=== PATIENT | female | born 1965 | race Caucasian/White ===

== ENCOUNTER 2017-03-29 23:54 | Emergency (ER) | payer OTHER ==
[~2017-03-29] VITALS: Ht 160 cm; Wt 93.0 kg
[~2017-03-29 23:54] MED LIST: METF500T4 PO
[2017-03-29] MEDS ORDERED: SITA100 PO (23:57)
[2017-03-29] MEDS ORDERED: METF500T4 PO (23:57)
[2017-03-30 00:02] LABS: GLUCOSE,POINT OF CARE 194 MG/DL (70-110)
[2017-03-30] MEDS ORDERED: IPRATROPIUM BROMIDE 0.5 MG/2.5 ML NEB SOLUTION NEB ONE (00:45)
[2017-03-30] MEDS ORDERED: ACETAMINOPHEN 500 MG TABLET PO ONE (00:45)
[2017-03-30] MEDS ORDERED: MethylPREDNISolone SOD SUCC 125 MG/2 ML VIAL IM ONE (00:45)
[2017-03-30] MEDS ORDERED: ALBUTEROL SULFATE 2.5 MG/0.5 ML NEB SOLUTION NEB ONE (00:45)
[2017-03-30 00:52] LABS: BASOPHILS # (AUTO) 0.03 K/uL (0.00-0.20); BASOPHILS % (AUTO) 0.5 % (0.0-2.0); EOSINOPHILS # (AUTO) 0.47 K/uL (0.00-0.70); HEMOGLOBIN 13.6 g/dL (12.0-16.0); LYMPHOCYTES # (AUTO) 1.6 K/uL (1.0-4.8); LYMPHOCYTES % (AUTO) 22.7 % (22.0-44.0); MEAN CORPUSCULAR HEMOGLOBIN 28.4 pg (26.0-34.0); MEAN CORPUSCULAR VOLUME 84 fL (80-100); MONOCYTES # (AUTO) 0.5 K/uL (0.1-1.0); MONOCYTES % (AUTO) 6.9 % (2.0-9.0); NEUTROPHILS # (AUTO) 4.6 K/uL (1.8-7.7); NEUTROPHILS % (AUTO) 63.5 % (40.0-70.0); PLATELET COUNT (AUTO) 272 K/uL (150-450); RED BLOOD CELL COUNT(AUTO) 4.79 MIL/uL (4.00-5.20)
[2017-03-30 01:05] LABS: ANION GAP 6 mmol/L (8-16); CARBON DIOXIDE 32 mmol/L (22-29); CHLORIDE 103 mmol/L (98-107); CREATININE 0.82 mg/dL (0.60-1.30); GLOMERULAR FILTR. RATE CALC > 60 mL/min (>60); GLUCOSE,RANDOM 185 mg/dL (70-110); POTASSIUM 4.1 mmol/L (3.5-5.1); SODIUM SERUM 141 mmol/L (136-145); UREA NITROGEN, BLOOD 13 mg/dL (7-18)
[2017-03-30 01:11] LABS: ALANINE AMINOTRANSFERASE 43 U/L (12-78); ALBUMIN 3.4 g/dL (3.4-5.0); ALKALINE PHOSPHATASE 80 U/L (46-116); ASPARTATE AMINOTRANSFERASE 19 U/L (15-37); BILIRUBIN,TOTAL 0.5 mg/dL (0.1-1.0); TOTAL PROTEIN, SERUM 6.7 g/dL (6.4-8.2)
[2017-03-30 01:15] VITALS: BP 152/89
[2017-03-30 01:22] LABS: INFLUENZA TYPE A NEGATIVE FOR TYPE A (NEGATIVE); INFLUENZA TYPE B NEGATIVE FOR TYPE B (NEGATIVE)
[2017-03-30] MEDS ORDERED: ALBUTEROL SULFATE HFA 90 MCG/PUFF 8 GM INHALER IH ONE (01:30)
== END 2017-03-30 02:08 | disposition home or self-care (01) ==
LOC: EMS 23:55
DX: J06.9 Acute upper respiratory infection, unspecified (principal); J40 Bronchitis, not specified as acute or chronic; E11.65 Type 2 diabetes mellitus with hyperglycemia; J02.9 Acute pharyngitis, unspecified
CPT/HCPCS: 36415; 71010; 80053; 82962; 84484; 85025; 87804; 94640 ×2; 96372; 99285; J2930; J7613; J3535

== ENCOUNTER → 2017-06-23 | Outpatient (CLI) | payer OTHER ==
[~2017-06-23] VITALS: Ht 160 cm; Wt 99.0 kg
[~2017-06-23] MED LIST changes: +LISI5TAB PO; -METF500T4 PO; +METF500T6 PO; +SITA100 PO
[2017-06-23 09:36] VITALS: BP 126/75
[2017-06-23 11:02] LABS: GLUCOMETER DEV NAME(LOC) SHC; GLUCOSE,POINT OF CARE 249 MG/DL (70-110)
== END | disposition home or self-care (01) ==
LOC: SRCNTR 08:58
PROVIDERS: ATTEND Hospitalist
DX: Z09 Encounter for follow-up examination after completed treatment for conditions other than malignant neoplasm (principal); E11.9 Type 2 diabetes mellitus without complications; I10 Essential (primary) hypertension
CPT/HCPCS: 82271; 82962; G0463

== ENCOUNTER → 2017-06-23 | Outpatient (CLI) | payer OTHER ==
[~2017-06-23] MED LIST changes: +METF500T4 PO; -METF500T6 PO
[2017-06-23 11:29] LABS: BASOPHILS % (AUTO) 0.9 % (0.0-2.0); EOSINOPHILS % (AUTO) 7.8 % (1.0-6.0); HEMATOCRIT 41.3 % (36-46); HEMOGLOBIN 14.4 g/dL (12.0-16.0); LYMPHOCYTES # (AUTO) 1.6 K/uL (1.0-4.8); LYMPHOCYTES % (AUTO) 20.8 % (22.0-44.0); MEAN CORPUSCULAR HEMOGLOBIN 28.2 pg (26.0-34.0); MEAN CORPUSCULAR HGB CONC 34.8 G/dL (31.0-37.0); MEAN CORPUSCULAR VOLUME 81 fL (80-100); MONOCYTES # (AUTO) 0.5 K/uL (0.1-1.0); MONOCYTES % (AUTO) 6.7 % (2.0-9.0); NEUTROPHILS % (AUTO) 63.8 % (40.0-70.0); PLATELET COUNT (AUTO) 221 K/uL (150-450); RED CELL DISTRIBUTION WIDTH 13.3 % (11.5-14.5)
[2017-06-23 11:33] LABS: BILIRUBIN,URINE NEGATIVE (NEGATIVE); GLUCOSE, URINE (UA) 250 mg/dL (NEGATIVE); KETONES,URINE NEGATIVE (NEGATIVE); LEUKOCYTE ESTERASE ,URINE NEGATIVE (NEGATIVE); NITRATE,URINE NEGATIVE (NEGATIVE); OCCULT BLOOD,URINE NEGATIVE (NEGATIVE); PH,URINE 5.5 (5.0-8.0); PROTEIN,URINE NEGATIVE (NEGATIVE)
[2017-06-23 11:40] LABS: APPEARANCE,URINE HAZY (CLEAR)
[2017-06-23 11:45] LABS: BACTERIA,URINE Moderate /HPF (None Seen); RBC,URINE 0-2 /HPF (0-2); SQUAMOUS EPITHELIAL CELL,UR Moderate /LPF (None Seen)
[2017-06-23 11:47] LABS: HEMOGLOBIN A1C 8.1 % (4.5-6.2)
[2017-06-23 11:54] LABS: ANION GAP 4 mmol/L (8-16); CARBON DIOXIDE 31 mmol/L (22-29); CHLORIDE 101 mmol/L (98-107); CREATININE 0.48 mg/dL (0.60-1.30); GLUCOSE,RANDOM 224 mg/dL (70-110); POTASSIUM 4.1 mmol/L (3.5-5.1); SODIUM SERUM 136 mmol/L (136-145); UREA NITROGEN, BLOOD 14 mg/dL (7-18)
[2017-06-23 11:55] LABS: ALANINE AMINOTRANSFERASE 71 U/L (12-78); ALBUMIN 3.7 g/dL (3.4-5.0); ALKALINE PHOSPHATASE 88 U/L (46-116); ASPARTATE AMINOTRANSFERASE 26 U/L (15-37); BILIRUBIN,TOTAL 1.2 mg/dL (0.1-1.0); CALCIUM, TOTAL 8.7 mg/dL (8.8-10.5); CHOL/HDL RATIO 4.6 (3.9-5.7); CHOLESTEROL 173 mg/dL (131-200); FREE T4 (FREE THYROXINE) 0.91 ng/dL (0.76-1.46); GLOMERULAR FILTR. RATE CALC > 60 mL/min (>60); HDL CHOLESTEROL 38 mg/dL (40-60); LDL CHOL (CALC.) 115 mg/dL (0-130); THYROID STIMULATING HORMONE 4.95 uIU/mL (0.36-3.74); TOTAL PROTEIN, SERUM 6.6 g/dL (6.4-8.2); TRIGLYCERIDES 102 mg/dL (15-150)
== END | disposition home or self-care (01) ==
LOC: LABPV 10:50
PROVIDERS: ATTEND Hospitalist
DX: E11.9 Type 2 diabetes mellitus without complications (principal)
CPT/HCPCS: 83036; 84439; 84443; 87086

== ENCOUNTER 2019-11-21 11:33 | Emergency (ER) | payer MEDICARE, OTHER ==
[~2019-11-21] VITALS: Ht 170.2 cm; Wt 100.0 kg
[~2019-11-21 11:33] MED LIST changes: -LISI5TAB PO; +METF-960 PO; -METF500T4 PO
[2019-11-21] MEDS ORDERED: LISI-660 PO (11:42)
[2019-11-21] MEDS ORDERED: GLYB5 PO (11:42)
[2019-11-21] MEDS ORDERED: ALBUTEROL SULFATE HFA 90 MCG/PUFF 8 GM INHALER IH ONE (14:00)
[2019-11-21] MEDS ORDERED: OXYMETAZOLINE HCL 0.05% 15 ML NASAL SPRAY NASAL ONE (14:00)
[2019-11-21 14:53] VITALS: BP 112/66
== END 2019-11-21 14:56 | disposition home or self-care (01) ==
LOC: EMS 11:37
DX: J40 Bronchitis, not specified as acute or chronic (principal); Z20.828 Contact with and (suspected) exposure to other viral communicable diseases
CPT/HCPCS: 87426; 94640; J3535; 71045-TC

== ENCOUNTER → 2019-12-27 | Outpatient (CLI) | payer MEDICARE, OTHER ==
[~2019-12-27] MED LIST changes: +GLYB5 PO; +LISI-660 PO; -SITA100 PO
== END | disposition home or self-care (01) ==
LOC: SRCNTR 11:22
PROVIDERS: ATTEND Hospitalist
DX: E11.9 Type 2 diabetes mellitus without complications (principal); I10 Essential (primary) hypertension; Z98.51 Tubal ligation status; Z98.890 Other specified postprocedural states
CPT/HCPCS: Q3014

== ENCOUNTER 2020-01-15 15:47 | Emergency (ER) | payer OTHER ==
[~2020-01-15] VITALS: Ht 162.6 cm; Wt 97.7 kg
[2020-01-15 17:28] LABS: COVID AG,FIA SOURCE NASAL SWAB
[2020-01-15 17:56] LABS: BASOPHILS % (AUTO) 0.8 % (0.0-2.0); EOSINOPHILS % (AUTO) 4.8 % (1.0-6.0); HEMATOCRIT 46.2 % (36-46); HEMOGLOBIN 15.7 g/dL (12.0-16.0); LYMPHOCYTES # (AUTO) 1.6 K/uL (1.0-4.8); MEAN CORPUSCULAR HEMOGLOBIN 27.9 pg (26.0-34.0); MEAN CORPUSCULAR VOLUME 82 fL (80-100); MONOCYTES # (AUTO) 0.7 K/uL (0.1-1.0); MONOCYTES % (AUTO) 6.7 % (2.0-9.0); NEUTROPHILS # (AUTO) 7.1 K/uL (1.8-7.7); NEUTROPHILS % (AUTO) 71.7 % (40.0-70.0); PLATELET COUNT (AUTO) 292 K/uL (150-450); RED BLOOD CELL COUNT(AUTO) 5.62 MIL/uL (4.00-5.20)
[2020-01-15 18:25] VITALS: BP 183/76
[2020-01-15 18:34] LABS: RAPID GROUP A STREP NEGATIVE (NEGATIVE)
== END 2020-01-15 18:30 | disposition home or self-care (01) ==
LOC: EMS 15:48
DX: J20.9 Acute bronchitis, unspecified (principal); I10 Essential (primary) hypertension; E11.9 Type 2 diabetes mellitus without complications; Z79.84 Long term (current) use of oral hypoglycemic drugs; Z79.899 Other long term (current) drug therapy; Z20.828 Contact with and (suspected) exposure to other viral communicable diseases
CPT/HCPCS: 36415; 71045; 85025; 87426; 87430; 99284; U0003

== ENCOUNTER → 2020-02-27 | Outpatient (CLI) | payer OTHER ==
[~2020-02-27] VITALS: Ht 152.4 cm; Wt 94.0 kg
[2020-02-27 15:58] VITALS: BP 151/74
== END | disposition home or self-care (01) ==
LOC: SRCNTR 15:49
PROVIDERS: ATTEND Hospitalist
DX: M25.411 Effusion, right shoulder (principal)
CPT/HCPCS: G0463

== ENCOUNTER 2020-09-01 14:49 | Emergency (ER) | payer OTHER ==
[~2020-09-01] VITALS: Ht 160 cm; Wt 97.3 kg
[~2020-09-01 14:49] MED LIST changes: -GLYB5 PO; +GLYB5TAB10 PO; -LISI-660 PO; +LISI-892 PO
[2020-09-01 17:07] VITALS: BP 154/70
== END 2020-09-01 17:13 | disposition home or self-care (01) ==
LOC: EMS 14:59
DX: J06.9 Acute upper respiratory infection, unspecified (principal); Z98.51 Tubal ligation status; E11.9 Type 2 diabetes mellitus without complications
CPT/HCPCS: 71046; 82948; 82962; 99283

== ENCOUNTER 2020-09-28 14:38 | Emergency (ER) | payer OTHER ==
[~2020-09-28] VITALS: Ht 165.1 cm; Wt 97.0 kg
[2020-09-28] MEDS ORDERED: ACETAMINOPHEN 325 MG TABLET PO ONE (15:30)
[2020-09-28] MEDS ORDERED: PERTUSS(ACELL),DIPH,TET VAC/PF 0.5 ML SYRINGE IM. ONE (16:30)
[2020-09-28 17:37] VITALS: BP 177/112
== END 2020-09-28 17:53 | disposition home or self-care (01) ==
LOC: EMS 14:47
DX: S10.91XA Abrasion of unspecified part of neck, initial encounter (principal); S09.90XA Unspecified injury of head, initial encounter; R51.9 Headache, unspecified; M54.2 Cervicalgia; Y04.8XXA Assault by other bodily force, initial encounter; Y93.89 Activity, other specified; Y92.89 Other specified places as the place of occurrence of the external cause; Y99.0 Civilian activity done for income or pay
CPT/HCPCS: 70450; 72125; 90471; 90715; 99285

== ENCOUNTER → 2020-10-02 | Outpatient (CLI) | payer BC, OTHER ==
[~2020-10-02] VITALS: Ht 160 cm; Wt 95.0 kg
[2020-10-02 11:38] VITALS: BP 144/73
== END | disposition home or self-care (01) ==
LOC: SRCNTR 11:19
PROVIDERS: ATTEND Hospitalist
DX: Z00.00 Encounter for general adult medical examination without abnormal findings (principal)
CPT/HCPCS: G0463

== ENCOUNTER → 2020-10-03 | Outpatient (CLI) | payer BC ==
[2020-10-03 09:05] LABS: BASOPHILS % (AUTO) 0.9 % (0.0-2.0); EOSINOPHILS % (AUTO) 3.7 % (1.0-6.0); HEMATOCRIT 41.9 % (36-46); HEMOGLOBIN 14.2 g/dL (12.0-16.0); LYMPHOCYTES # (AUTO) 1.4 K/uL (1.0-4.8); MEAN CORPUSCULAR HEMOGLOBIN 27.8 pg (26.0-34.0); MEAN CORPUSCULAR VOLUME 82 fL (80-100); MONOCYTES # (AUTO) 0.6 K/uL (0.1-1.0); MONOCYTES % (AUTO) 6.4 % (2.0-9.0); NEUTROPHILS # (AUTO) 6.6 K/uL (1.8-7.7); PLATELET COUNT (AUTO) 236 K/uL (150-450); RED BLOOD CELL COUNT(AUTO) 5.12 MIL/uL (4.00-5.20); RED CELL DISTRIBUTION WIDTH 13.4 % (11.5-14.5)
[2020-10-03 09:09] LABS: HEMOGLOBIN A1C 10.8 % (3.8-5.6)
[2020-10-03 09:18] LABS: ALBUMIN 3.6 g/dL (3.4-5.0); ALKALINE PHOSPHATASE 116 U/L (46-116); ANION GAP 6 mmol/L (8-16); ASPARTATE AMINOTRANSFERASE 23 U/L (15-37); BILIRUBIN,TOTAL 0.8 mg/dL (0.1-1.0); CALCIUM, TOTAL 8.5 mg/dL (8.8-10.5); CARBON DIOXIDE 29 mmol/L (22-29); CHLORIDE 101 mmol/L (98-107); CHOLESTEROL 157 mg/dL (131-200); CREATININE 0.63 mg/dL (0.60-1.30); GLOMERULAR FILTR. RATE CALC > 60 mL/min (>60); GLUCOSE,RANDOM 267 mg/dL (70-110); SODIUM SERUM 136 mmol/L (136-145); THYROID STIMULATING HORMONE 3.24 uIU/mL (0.36-3.74); TOTAL PROTEIN, SERUM 6.6 g/dL (6.4-8.2); TRIGLYCERIDES 154 mg/dL (15-150)
[2020-10-03 09:59] LABS: UREA NITROGEN, BLOOD 16 mg/dL (7-18)
[2020-10-03 10:00] LABS: ALANINE AMINOTRANSFERASE 54 U/L (12-78)
[2020-10-03 10:19] LABS: CHOL/HDL RATIO 4.2 (3.9-5.7); HDL CHOLESTEROL 37 mg/dL (40-60); LDL CHOL (CALC.) 89 mg/dL (0-130)
== END | disposition home or self-care (01) ==
LOC: LABMN 08:36
PROVIDERS: ATTEND Hospitalist
DX: F43.10 Post-traumatic stress disorder, unspecified (principal)
CPT/HCPCS: 80053; 80061; 82306; 83036; 84443; 85025

== ENCOUNTER 2020-11-08 10:56 | Emergency (ER) | payer OTHER ==
[~2020-11-08] VITALS: Ht 160 cm; Wt 95.0 kg
[2020-11-08 10:58] VITALS: BP 140/81
[2020-11-08] MEDS ORDERED: ONDANSETRON HCL 4 MG/2 ML VIAL IVP ONE (11:30)
[2020-11-08] MEDS ORDERED: KETOROLAC TROMETHAMINE 30 MG/ML VIAL IVP ONE (11:30)
[2020-11-08] MEDS ORDERED: SODIUM CHLORIDE 0.9% 1,000 ML IV ONE (11:30)
[2020-11-08 11:51] LABS: BASOPHILS % (AUTO) 0.9 % (0.0-2.0); EOSINOPHILS % (AUTO) 1.7 % (1.0-6.0); HEMATOCRIT 44.1 % (36-46); LYMPHOCYTES # (AUTO) 1.1 K/uL (1.0-4.8); MEAN CORPUSCULAR HGB CONC 34.1 G/dL (31.0-37.0); MEAN CORPUSCULAR VOLUME 82 fL (80-100); MONOCYTES # (AUTO) 0.6 K/uL (0.1-1.0); MONOCYTES % (AUTO) 7.3 % (2.0-9.0); NEUTROPHILS # (AUTO) 5.7 K/uL (1.8-7.7); NEUTROPHILS % (AUTO) 75.1 % (40.0-70.0); PLATELET COUNT (AUTO) 225 K/uL (150-450); RED BLOOD CELL COUNT(AUTO) 5.38 MIL/uL (4.00-5.20); RED CELL DISTRIBUTION WIDTH 13.5 % (11.5-14.5)
[2020-11-08 11:58] LABS: ANION GAP 8 mmol/L (8-16); CARBON DIOXIDE 26 mmol/L (22-29); CHLORIDE 99 mmol/L (98-107); CREATININE 0.68 mg/dL (0.60-1.30); GLOMERULAR FILTR. RATE CALC > 60 mL/min (>60); GLUCOSE,RANDOM 318 mg/dL (70-110); POTASSIUM 3.8 mmol/L (3.5-5.1); SODIUM SERUM 133 mmol/L (136-145); UREA NITROGEN, BLOOD 16 mg/dL (7-18)
[2020-11-08 12:03] LABS: ACETONE,BLOOD NEGATIVE (NEGATIVE)
[2020-11-08 12:05] LABS: ALANINE AMINOTRANSFERASE 44 U/L (12-78); ALBUMIN 3.6 g/dL (3.4-5.0); ALKALINE PHOSPHATASE 112 U/L (46-116); ASPARTATE AMINOTRANSFERASE 13 U/L (15-37); BILIRUBIN,TOTAL 1.5 mg/dL (0.1-1.0); CREATINE KINASE, TOTAL ONLY 50 U/L (26-192); PHOSPHORUS 3.5 mg/dL (2.5-4.9); TOTAL PROTEIN, SERUM 6.8 g/dL (6.4-8.2)
[2020-11-08 12:09] LABS: B-TYPE NATRIURETIC PEPTIDE 9 pg/mL (0-100)
[2020-11-08 13:39] LABS: GLUCOMETER DEV NAME(LOC) ERT.5; GLUCOSE,POINT OF CARE 225 MG/DL (70-110)
== END 2020-11-08 14:04 | disposition home or self-care (01) ==
LOC: EMS 10:59
DX: E11.65 Type 2 diabetes mellitus with hyperglycemia (principal); I10 Essential (primary) hypertension; Z79.899 Other long term (current) drug therapy; Z79.84 Long term (current) use of oral hypoglycemic drugs
CPT/HCPCS: 80053; 82009; 82550; 82962; 83735; 83880; 84100; 84484; 85025; 93005; 96361; 96374; 96375; 99284; J1885; J2405; J7030

== ENCOUNTER → 2021-01-15 | Emergency (ER) | payer OTHER ==
[~2021-01-15] VITALS: Ht 160 cm; Wt 95.0 kg
[~2021-01-15] MED LIST changes: +KETOROLAC TROMETHAMINE 30 MG/ML VIAL IVP ONE; +SODIUM CHLORIDE 0.9% 1,000 ML IV ONE
[2021-01-15 22:15] LABS: BASOPHILS % (AUTO) 1.4 % (0.0-2.0); EOSINOPHILS % (AUTO) 4.5 % (1.0-6.0); HEMATOCRIT 45.1 % (36-46); HEMOGLOBIN 15.4 g/dL (12.0-16.0); LYMPHOCYTES # (AUTO) 2.1 K/uL (1.0-4.8); LYMPHOCYTES % (AUTO) 20.7 % (22.0-44.0); MEAN CORPUSCULAR HGB CONC 34.2 G/dL (31.0-37.0); MEAN CORPUSCULAR VOLUME 82 fL (80-100); MONOCYTES # (AUTO) 0.6 K/uL (0.1-1.0); NEUTROPHILS # (AUTO) 6.7 K/uL (1.8-7.7); NEUTROPHILS % (AUTO) 67.4 % (40.0-70.0); PLATELET COUNT (AUTO) 254 K/uL (150-450); RED CELL DISTRIBUTION WIDTH 12.9 % (11.5-14.5)
[2021-01-15 22:23] LABS: CALCIUM, TOTAL 9.2 mg/dL (8.8-10.5); CREATININE 1.11 mg/dL (0.60-1.30); POTASSIUM 4.1 mmol/L (3.5-5.1)
[2021-01-15 22:26] LABS: APPEARANCE,URINE CLEAR (CLEAR); BILIRUBIN,URINE NEGATIVE (NEGATIVE); GLUCOSE, URINE (UA) >=1000 mg/dL (NEGATIVE); KETONES,URINE TRACE mg/dL (NEGATIVE); LEUKOCYTE ESTERASE ,URINE NEGATIVE (NEGATIVE); NITRATE,URINE NEGATIVE (NEGATIVE); OCCULT BLOOD,URINE NEGATIVE (NEGATIVE); PROTEIN,URINE NEGATIVE (NEGATIVE); UROBILINOGEN,URINE 0.2 mg/dL (<=1.0)
[2021-01-15 22:35] LABS: BILIRUBIN,TOTAL 0.8 mg/dL (0.1-1.0); TOTAL PROTEIN, SERUM 7.1 g/dL (6.4-8.2)
[2021-01-15 22:42] LABS: BACTERIA,URINE Few /HPF (None Seen); RBC,URINE 0-2 /HPF (0-2); WBC,URINE 0-2 /HPF (0-5)
[2021-01-15 22:55] LABS: ALBUMIN 3.9 g/dL (3.4-5.0)
[2021-01-15 23:45] VITALS: BP 144/79
== END | disposition home or self-care (01) ==
LOC: EMS 21:11
DX: R10.9 Unspecified abdominal pain (principal); E11.9 Type 2 diabetes mellitus without complications; Z79.84 Long term (current) use of oral hypoglycemic drugs; Z79.899 Other long term (current) drug therapy; Z98.890 Other specified postprocedural states
CPT/HCPCS: 36415; 74176; 80053; 81001; 83690; 84702; 85025; 96361; 96374; 99284; J1885; J7030

== ENCOUNTER 2021-01-17 13:35 | Emergency (ER) | payer OTHER ==
[~2021-01-17] VITALS: Ht 160 cm; Wt 93.2 kg
[~2021-01-17 13:35] MED LIST changes: -KETOROLAC TROMETHAMINE 30 MG/ML VIAL IVP ONE; -SODIUM CHLORIDE 0.9% 1,000 ML IV ONE
[2021-01-17] MEDS ORDERED: IOHEXOL 240 MG/ML 50 ML VIAL PO ONE (15:45)
[2021-01-17] MEDS ORDERED: SODIUM CHLORIDE 0.9% 1,000 ML IV ONE (15:45)
[2021-01-17] MEDS ORDERED: KETOROLAC TROMETHAMINE 30 MG/ML VIAL IVP ONE (15:45)
[2021-01-17 15:53] LABS: BASOPHILS % (AUTO) 0.6 % (0.0-2.0); EOSINOPHILS % (AUTO) 2.5 % (1.0-6.0); HEMATOCRIT 45.3 % (36-46); HEMOGLOBIN 15.6 g/dL (12.0-16.0); LYMPHOCYTES # (AUTO) 1.6 K/uL (1.0-4.8); LYMPHOCYTES % (AUTO) 19.3 % (22.0-44.0); MEAN CORPUSCULAR HGB CONC 34.5 G/dL (31.0-37.0); MEAN CORPUSCULAR VOLUME 81 fL (80-100); MONOCYTES # (AUTO) 0.5 K/uL (0.1-1.0); MONOCYTES % (AUTO) 6.2 % (2.0-9.0); NEUTROPHILS # (AUTO) 5.9 K/uL (1.8-7.7); NEUTROPHILS % (AUTO) 71.4 % (40.0-70.0); PLATELET COUNT (AUTO) 267 K/uL (150-450); RED BLOOD CELL COUNT(AUTO) 5.59 MIL/uL (4.00-5.20); RED CELL DISTRIBUTION WIDTH 13.2 % (11.5-14.5)
[2021-01-17 16:02] LABS: ANION GAP 4 mmol/L (8-16); CALCIUM, TOTAL 9.5 mg/dL (8.8-10.5); CARBON DIOXIDE 33 mmol/L (22-29); CHLORIDE 101 mmol/L (98-107); CREATININE 0.69 mg/dL (0.60-1.30); GLOMERULAR FILTR. RATE CALC > 60 mL/min (>60); GLUCOSE,RANDOM 244 mg/dL (70-110); POTASSIUM 4.5 mmol/L (3.5-5.1); SODIUM SERUM 138 mmol/L (136-145); UREA NITROGEN, BLOOD 11 mg/dL (7-18)
[2021-01-17 16:07] LABS: ALANINE AMINOTRANSFERASE 54 U/L (12-78); ALBUMIN 3.9 g/dL (3.4-5.0); ALKALINE PHOSPHATASE 86 U/L (46-116); ASPARTATE AMINOTRANSFERASE 27 U/L (15-37); BILIRUBIN,TOTAL 1.4 mg/dL (0.1-1.0); LIPASE 142 U/L (73-393); TOTAL PROTEIN, SERUM 7.1 g/dL (6.4-8.2)
[2021-01-17] MEDS ORDERED: BARIUM SULFATE 0.1% SUSPENSION 450 ML BOTTLE PO ONE (16:30)
[2021-01-17 16:36] LABS: GLUCOMETER DEV NAME(LOC) ERT.5; GLUCOSE,POINT OF CARE 253 MG/DL (70-110)
[2021-01-17] MEDS ORDERED: SODIUM CHLORIDE 0.9% 100 ML ONE (17:28)
[2021-01-17] MEDS ORDERED: IOHEXOL 350 MG/ML 100 ML VIAL ONE (17:29)
[2021-01-17 17:31] VITALS: BP 148/77
== END 2021-01-17 19:20 | disposition home or self-care (01) ==
LOC: EMS 13:35
DX: R10.31 Right lower quadrant pain (principal); E11.9 Type 2 diabetes mellitus without complications; Z79.84 Long term (current) use of oral hypoglycemic drugs
CPT/HCPCS: 36415; 74177; 80053; 82948; 82962; 83690; 85025; 96361; 96374; 99285; J1885; J7030; J7050; Q9967; Q9966

== ENCOUNTER 2021-01-20 13:52 | Emergency (ER) | payer OTHER ==
[~2021-01-20] VITALS: Ht 172.7 cm; Wt 81.8 kg
[~2021-01-20 13:52] MED LIST changes: +METF-1211 PO; -METF-960 PO
[2021-01-20] MEDS ORDERED: SODIUM CHLORIDE 0.9% 1,000 ML IV ONE (14:15)
[2021-01-20] MEDS ORDERED: MORPHINE SULFATE 4 MG/ML SYRINGE IVP ONE (14:15)
[2021-01-20] MEDS ORDERED: ONDANSETRON HCL 4 MG/2 ML VIAL IVP ONE (14:15)
[2021-01-20 14:24] LABS: BASOPHILS % (AUTO) 0.5 % (0.0-2.0); EOSINOPHILS % (AUTO) 0.8 % (1.0-6.0); HEMATOCRIT 45.8 % (36-46); HEMOGLOBIN 15.9 g/dL (12.0-16.0); LYMPHOCYTES # (AUTO) 1.1 K/uL (1.0-4.8); MEAN CORPUSCULAR HGB CONC 34.8 G/dL (31.0-37.0); MEAN CORPUSCULAR VOLUME 81 fL (80-100); MONOCYTES # (AUTO) 0.6 K/uL (0.1-1.0); MONOCYTES % (AUTO) 6.9 % (2.0-9.0); NEUTROPHILS # (AUTO) 7.4 K/uL (1.8-7.7); NEUTROPHILS % (AUTO) 79.8 % (40.0-70.0); PLATELET COUNT (AUTO) 305 K/uL (150-450); RED BLOOD CELL COUNT(AUTO) 5.69 MIL/uL (4.00-5.20); RED CELL DISTRIBUTION WIDTH 13.2 % (11.5-14.5)
[2021-01-20 14:31] LABS: ANION GAP 8 mmol/L (8-16); CARBON DIOXIDE 27 mmol/L (22-29); CHLORIDE 98 mmol/L (98-107); CREATININE 0.78 mg/dL (0.60-1.30); GLOMERULAR FILTR. RATE CALC > 60 mL/min (>60); GLUCOSE,RANDOM 356 mg/dL (70-110); POTASSIUM 4.2 mmol/L (3.5-5.1); SODIUM SERUM 133 mmol/L (136-145); UREA NITROGEN, BLOOD 14 mg/dL (7-18)
[2021-01-20 14:37] LABS: ALANINE AMINOTRANSFERASE 49 U/L (12-78); ALBUMIN 4.2 g/dL (3.4-5.0); ALKALINE PHOSPHATASE 88 U/L (46-116); ASPARTATE AMINOTRANSFERASE 19 U/L (15-37); BILIRUBIN,TOTAL 1.5 mg/dL (0.1-1.0); TOTAL PROTEIN, SERUM 7.5 g/dL (6.4-8.2)
[2021-01-20 16:17] LABS: APPEARANCE,URINE CLEAR (CLEAR); BILIRUBIN,URINE NEGATIVE (NEGATIVE); GLUCOSE, URINE (UA) >=1000 mg/dL (NEGATIVE); KETONES,URINE 15 mg/dL (NEGATIVE); LEUKOCYTE ESTERASE ,URINE NEGATIVE (NEGATIVE); NITRATE,URINE NEGATIVE (NEGATIVE); OCCULT BLOOD,URINE NEGATIVE (NEGATIVE); PROTEIN,URINE NEGATIVE (NEGATIVE)
[2021-01-20 16:23] LABS: BACTERIA,URINE None Seen /HPF (None Seen); RBC,URINE 0-2 /HPF (0-2); WBC,URINE 0-2 /HPF (0-5)
[2021-01-20 16:41] VITALS: BP 134/74
[2021-01-20 16:48] LABS: GLUCOMETER DEV NAME(LOC) ERT.5; GLUCOSE,POINT OF CARE 229 MG/DL (70-110)
== END 2021-01-20 16:49 | disposition home or self-care (01) ==
LOC: EMS 13:52
DX: M54.50 Low back pain, unspecified (principal); E11.9 Type 2 diabetes mellitus without complications; Z79.84 Long term (current) use of oral hypoglycemic drugs
CPT/HCPCS: 36415; 76700; 80053; 81001; 82962; 85025; 96361; 96374; 96375; 99284; J2270; J2405; J7030

== ENCOUNTER → 2021-09-17 | Outpatient (CLI) | payer OTHER ==
[~2021-09-17] MED LIST changes: +DOXY-354 PO; +GLYB-145 PO; -GLYB5TAB10 PO
== END | disposition home or self-care (01) ==
LOC: SRCNTR 15:36
PROVIDERS: ATTEND Hospitalist
DX: E11.9 Type 2 diabetes mellitus without complications (principal); I10 Essential (primary) hypertension
CPT/HCPCS: Q3014

== ENCOUNTER 2021-10-24 15:26 | Emergency (ER) | payer OTHER ==
[~2021-10-24] VITALS: Ht 162.6 cm; Wt 94.1 kg
[~2021-10-24 15:26] MED LIST changes: -DOXY-354 PO
[2021-10-24] MEDS ORDERED: IBUPROFEN 600 MG TABLET PO ONE (16:15)
[2021-10-24] MEDS ORDERED: DOXYCYCLINE HYCLATE 100 MG TABLET PO ONE (16:15)
[2021-10-24] MEDS ORDERED: DOXY-354 PO (16:51)
[2021-10-24 17:00] VITALS: BP 142/80
== END 2021-10-24 19:19 | disposition home or self-care (01) ==
LOC: EMS 15:38
DX: L73.2 Hidradenitis suppurativa (principal); L03.112 Cellulitis of left axilla; M79.671 Pain in right foot; E11.9 Type 2 diabetes mellitus without complications; Z79.899 Other long term (current) drug therapy
CPT/HCPCS: 82962; 99284

== ENCOUNTER → 2021-12-02 | Outpatient (CLI) | payer OTHER ==
[~2021-12-02] MED LIST changes: +ALBU8HFA IH; +AZIT250T9 PO; +BENZ-70 PO; +DOXY-354 PO; +LISI-662 PO; +PRED-554 PO; +SITA50 PO
[2021-12-02 14:40] VITALS: BP 143/76
== END | disposition home or self-care (01) ==
LOC: SRCNTR 10:37
PROVIDERS: ATTEND Hospitalist
DX: L73.2 Hidradenitis suppurativa (principal); I10 Essential (primary) hypertension; E11.9 Type 2 diabetes mellitus without complications
CPT/HCPCS: G0463

== ENCOUNTER 2022-01-30 15:30 | Emergency (ER) | payer OTHER ==
[~2022-01-30] VITALS: Ht 160 cm; Wt 80.0 kg
[~2022-01-30 15:30] MED LIST changes: -ALBU8HFA IH; -AZIT250T9 PO; -BENZ-70 PO; -LISI-662 PO; -PRED-554 PO; -SITA50 PO
[2022-01-30] MEDS ORDERED: SITA50 PO (15:36)
[2022-01-30] MEDS ORDERED: LISI-662 PO (15:36)
[2022-01-30 15:47] LABS: COVID AG,FIA SOURCE NASAL SWAB
[2022-01-30 16:03] VITALS: BP 143/81
[2022-01-30 16:06] LABS: INFLUENZA TYPE A NEGATIVE FOR TYPE A (NEGATIVE); INFLUENZA TYPE B NEGATIVE FOR TYPE B (NEGATIVE)
[2022-01-30] MEDS ORDERED: ALBUTEROL SULFATE 2.5 MG/0.5 ML NEB SOLUTION NEB ONE (16:15)
[2022-01-30] MEDS ORDERED: AZIT250T9 PO (18:40)
[2022-01-30] MEDS ORDERED: PRED-554 PO (18:40)
[2022-01-30] MEDS ORDERED: BENZ-70 PO (18:41)
[2022-01-30] MEDS ORDERED: ALBU8HFA IH (18:41)
[2022-01-30] MEDS ORDERED: PredniSONE 20 MG TABLET PO ONE (18:45)
== END 2022-01-30 18:57 | disposition home or self-care (01) ==
LOC: EMS 15:42
DX: J32.9 Chronic sinusitis, unspecified (principal); E11.9 Type 2 diabetes mellitus without complications; Z98.890 Other specified postprocedural states; Z20.822 Contact with and (suspected) exposure to COVID-19
CPT/HCPCS: 99284; 71046; 87426; 82962; 87804; 94640; J7512; J7613

== ENCOUNTER → 2022-02-10 | Outpatient (CLI) | payer OTHER ==
[~2022-02-10] MED LIST changes: +ALBU8HFA IH; +BENZ-70 PO; -DOXY-354 PO; +LISI-662 PO; -LISI-892 PO; +PRED-554 PO; +SITA50 PO
[2022-02-10 20:27] LABS: BASOPHILS % (AUTO) 1.1 % (0.0-2.0); HEMOGLOBIN 15.3 g/dL (12.0-16.0); LYMPHOCYTES # (AUTO) 1.7 K/uL (1.0-4.8); MEAN CORPUSCULAR VOLUME 82 fL (80-100); MONOCYTES # (AUTO) 0.7 K/uL (0.1-1.0); MONOCYTES % (AUTO) 7.3 % (2.0-9.0); NEUTROPHILS # (AUTO) 6.5 K/uL (1.8-7.7); NEUTROPHILS % (AUTO) 69.6 % (40.0-70.0); PLATELET COUNT (AUTO) 253 K/uL (150-450); RED BLOOD CELL COUNT(AUTO) 5.47 MIL/uL (4.00-5.20); RED CELL DISTRIBUTION WIDTH 13.1 % (11.5-14.5)
[2022-02-10 20:35] LABS: HEMOGLOBIN A1C 9.6 % (3.8-5.6)
[2022-02-10 20:49] LABS: ALANINE AMINOTRANSFERASE 49 U/L (12-78); ALBUMIN 3.9 g/dL (3.4-5.0); ALKALINE PHOSPHATASE 94 U/L (46-116); ANION GAP 6 mmol/L (8-16); ASPARTATE AMINOTRANSFERASE 22 U/L (15-37); CALCIUM, TOTAL 9.4 mg/dL (8.8-10.5); CARBON DIOXIDE 30 mmol/L (22-29); CHLORIDE 101 mmol/L (98-107); CHOL/HDL RATIO 4.9 (3.9-5.7); CHOLESTEROL 205 mg/dL (131-200); CREATININE 0.66 mg/dL (0.60-1.30); GLUCOSE,RANDOM 205 mg/dL (70-110); HDL CHOLESTEROL 42 mg/dL (40-60); LDL CHOL (CALC.) 127 mg/dL (0-130); POTASSIUM 4.3 mmol/L (3.5-5.1); SODIUM SERUM 137 mmol/L (136-145); THYROID STIMULATING HORMONE 2.26 uIU/mL (0.36-3.74); TOTAL PROTEIN, SERUM 7.1 g/dL (6.4-8.2); TRIGLYCERIDES 182 mg/dL (15-150); UREA NITROGEN, BLOOD 14 mg/dL (7-18)
[2022-02-10 20:50] LABS: GLOMERULAR FILTR. RATE CALC > 60 mL/min (>60)
== END | disposition home or self-care (01) ==
LOC: LABMN 20:01
PROVIDERS: ATTEND Hospitalist
DX: Z01.89 Encounter for other specified special examinations (principal)
CPT/HCPCS: 80053; 80061; 83036; 84443; 85025

== ENCOUNTER 2022-02-27 16:21 | Emergency (ER) | payer OTHER ==
[~2022-02-27] VITALS: Ht 160 cm; Wt 95.5 kg
[2022-02-27 16:29] VITALS: BP 110/79
[2022-02-27] MEDS ORDERED: NIRM1TAB PO (18:01)
== END 2022-02-27 18:46 | disposition home or self-care (01) ==
LOC: EEVIPCON 16:21 → EMS 16:21
DX: U07.1 COVID-19 (principal); E11.9 Type 2 diabetes mellitus without complications
CPT/HCPCS: 99283; U0003

== ENCOUNTER 2022-05-02 18:21 | Emergency (ER) | payer OTHER ==
[~2022-05-02] VITALS: Ht 160 cm; Wt 93.2 kg
[~2022-05-02 18:21] MED LIST changes: +BENZ-227 PO; -BENZ-70 PO; +DOXY-354 PO; +NIRM1TAB4 PO
[2022-05-02] MEDS ORDERED: SODIUM CHLORIDE 0.9% 1,000 ML IV ONE (19:15)
[2022-05-02] MEDS ORDERED: ACETAMINOPHEN 500 MG TABLET PO ONE (19:15)
[2022-05-02 19:46] LABS: ANION GAP 7 mmol/L (8-16); CALCIUM, TOTAL 9.6 mg/dL (8.8-10.5); CARBON DIOXIDE 30 mmol/L (22-29); CHLORIDE 98 mmol/L (98-107); CREATININE 0.73 mg/dL (0.60-1.30); POTASSIUM 4.8 mmol/L (3.5-5.1); SODIUM SERUM 135 mmol/L (136-145); UREA NITROGEN, BLOOD 19 mg/dL (7-18)
[2022-05-02 19:49] LABS: GLOMERULAR FILTR. RATE CALC > 60 mL/min (>60)
[2022-05-02 19:50] LABS: GLUCOSE,RANDOM 411 mg/dL (70-110)
[2022-05-02] MEDS ORDERED: INSULIN REGULAR, HUMAN 100 UNITS/ML IVP ONE (20:00)
[2022-05-02 21:10] VITALS: BP 136/72
[2022-05-02] MEDS ORDERED: IBUP-1492 PO (21:20)
[2022-05-02 21:21] LABS: GLUCOMETER DEV NAME(LOC) ERT.5; GLUCOSE,POINT OF CARE 210 MG/DL (70-110)
== END 2022-05-02 21:35 | disposition home or self-care (01) ==
LOC: EMS 18:24
DX: S93.602A Unspecified sprain of left foot, initial encounter (principal); E11.65 Type 2 diabetes mellitus with hyperglycemia; Z98.890 Other specified postprocedural states; W19.XXXA Unspecified fall, initial encounter; Y93.89 Activity, other specified; Y92.89 Other specified places as the place of occurrence of the external cause; Y99.8 Other external cause status
CPT/HCPCS: 99284; 96374; 96361; 80048; 82962; 36415; 73630; J1815; J7030

== ENCOUNTER 2022-06-30 16:24 | Emergency (ER) | payer OTHER ==
[~2022-06-30] VITALS: Ht 162.6 cm; Wt 79.5 kg
[~2022-06-30 16:24] MED LIST changes: +ALBU18HF12 IH; -ALBU8HFA IH; +IBUP-1492 PO
[2022-06-30 16:27] VITALS: BP 147/69
[2022-06-30 19:01] LABS: COVID AG,FIA SOURCE NASAL SWAB
[2022-06-30 19:28] LABS: INFLUENZA TYPE A NEGATIVE FOR TYPE A (NEGATIVE); INFLUENZA TYPE B NEGATIVE FOR TYPE B (NEGATIVE)
[2022-06-30] MEDS ORDERED: BENZ-227 PO (19:54)
[2022-06-30] MEDS ORDERED: AZIT250T9 PO (19:54)
== END 2022-06-30 20:35 | disposition home or self-care (01) ==
LOC: EMS 16:27
DX: J18.9 Pneumonia, unspecified organism (principal); E11.9 Type 2 diabetes mellitus without complications; Z98.890 Other specified postprocedural states; Z20.822 Contact with and (suspected) exposure to COVID-19
CPT/HCPCS: 71045; 87804; 99284

== ENCOUNTER → 2022-07-07 | Outpatient (CLI) | payer OTHER ==
[~2022-07-07] MED LIST changes: -DOXY-354 PO; -IBUP-1492 PO; -PRED-554 PO
== END | disposition home or self-care (01) ==
LOC: RADPV 08:08
PROVIDERS: ATTEND Hospitalist
DX: K76.0 Fatty (change of) liver, not elsewhere classified (principal); L73.2 Hidradenitis suppurativa
CPT/HCPCS: 76700

== ENCOUNTER → 2022-07-08 | Outpatient (CLI) | payer OTHER | END | disposition home or self-care (01) | LOC: SRCNTR 11:37 | PROVIDERS: ATTEND Hospitalist | DX: E11.9 Type 2 diabetes mellitus without complications (principal); E78.5 Hyperlipidemia, unspecified; R06.02 Shortness of breath; E66.9 Obesity, unspecified; L73.2 Hidradenitis suppurativa; R05.8 Other specified cough | CPT/HCPCS: G0463; Z7500 ==

== ENCOUNTER → 2022-10-15 | Outpatient (CLI) | payer OTHER | END | disposition home or self-care (01) | LOC: SRCNTR 11:44 | PROVIDERS: ATTEND Internal Medicine Pulmonary Disease | DX: R06.09 Other forms of dyspnea (principal); I10 Essential (primary) hypertension; E11.9 Type 2 diabetes mellitus without complications; L73.2 Hidradenitis suppurativa; E66.9 Obesity, unspecified; Z79.899 Other long term (current) drug therapy; Z87.01 Personal history of pneumonia (recurrent) | CPT/HCPCS: G0463; Z7500 ==

== ENCOUNTER 2022-12-05 10:32 | Emergency (ER) | payer OTHER ==
[~2022-12-05] VITALS: Ht 162.6 cm; Wt 93.2 kg
[2022-12-05] MEDS ORDERED: GLIP10TA10 PO (10:43)
[2022-12-05 10:55] LABS: COVID AG,FIA SOURCE NASAL SWAB
[2022-12-05 11:13] LABS: SARS-COV2 (COVID) ANTIGEN,FIA Negative (Negative)
[2022-12-05 11:14] LABS: INFLUENZA TYPE A NEGATIVE FOR TYPE A (NEGATIVE); INFLUENZA TYPE B NEGATIVE FOR TYPE B (NEGATIVE)
[2022-12-05] MEDS ORDERED: SODIUM CHLORIDE 0.9% 1,000 ML IV ONE (12:00)
[2022-12-05] MEDS ORDERED: ALBU18HF12 IH (12:04)
[2022-12-05 12:23] LABS: BASOPHILS % (AUTO) 0.3 % (0.0-2.0); EOSINOPHILS % (AUTO) 9.3 % (1.0-6.0); HEMATOCRIT 47.3 % (36-46); HEMOGLOBIN 15.8 g/dL (12.0-16.0); LYMPHOCYTES # (AUTO) 1.3 K/uL (1.0-4.8); LYMPHOCYTES % (AUTO) 12.7 % (22.0-44.0); MEAN CORPUSCULAR HEMOGLOBIN 27.7 pg (26.0-34.0); MEAN CORPUSCULAR HGB CONC 33.3 G/dL (31.0-37.0); MEAN CORPUSCULAR VOLUME 83 fL (80-100); MONOCYTES # (AUTO) 0.6 K/uL (0.1-1.0); MONOCYTES % (AUTO) 6.1 % (2.0-9.0); NEUTROPHILS # (AUTO) 7.5 K/uL (1.8-7.7); NEUTROPHILS % (AUTO) 71.6 % (40.0-70.0); PLATELET COUNT (AUTO) 255 K/uL (150-450); RED BLOOD CELL COUNT(AUTO) 5.69 MIL/uL (4.00-5.20); RED CELL DISTRIBUTION WIDTH 13.6 % (11.5-14.5); WHITE BLOOD COUNT (AUTO) 10.5 K/uL (4.5-11.0)
[2022-12-05 12:42] LABS: ANION GAP 6 mmol/L (8-16); CALCIUM, TOTAL 9.1 mg/dL (8.8-10.5); CARBON DIOXIDE 31 mmol/L (22-29); CHLORIDE 99 mmol/L (98-107); CREATININE 0.55 mg/dL (0.60-1.30); GLOMERULAR FILTR. RATE CALC > 60 mL/min (>60); GLUCOSE,RANDOM 358 mg/dL (70-110); SODIUM SERUM 136 mmol/L (136-145); UREA NITROGEN, BLOOD 14 mg/dL (7-18)
[2022-12-05 12:46] LABS: ALANINE AMINOTRANSFERASE 38 U/L (12-78); ALBUMIN 3.9 g/dL (3.4-5.0); ALKALINE PHOSPHATASE 115 U/L (46-116); ASPARTATE AMINOTRANSFERASE 20 U/L (15-37); BILIRUBIN,TOTAL 1.5 mg/dL (0.1-1.0); TOTAL PROTEIN, SERUM 7.3 g/dL (6.4-8.2)
[2022-12-05 13:41] LABS: GLUCOMETER DEV NAME(LOC) ERT.5; GLUCOSE,POINT OF CARE 283 MG/DL (70-110)
[2022-12-05] MEDS ORDERED: ALBUTEROL SULFATE HFA 90 MCG/PUFF 8 GM INHALER IH ONE (14:00)
[2022-12-05 14:02] VITALS: PULSE 86; RESP 20; O2SAT 95
[2022-12-05 14:04] VITALS: PULSE 85; RESP 18; O2SAT 95
[2022-12-05] MEDS ORDERED: AZITHROMYCIN 500 MG TABLET PO ONE (14:30)
[2022-12-05 15:09] VITALS: TEMP 98.7
[2022-12-05] MEDS ORDERED: AZIT250T9 PO (15:10)
[2022-12-05 15:30] VITALS: BP 139/79; PULSE 89; RESP 16
== END 2022-12-05 15:47 | disposition home or self-care (01) ==
LOC: EMS 10:33
DX: J18.9 Pneumonia, unspecified organism (principal); E11.9 Type 2 diabetes mellitus without complications; Z20.822 Contact with and (suspected) exposure to COVID-19; Z98.890 Other specified postprocedural states
CPT/HCPCS: 99285; 96360; 71045; 87426; 80053; 82962; 85025; 87804; 36415; 94640; Q9967; J3535

== ENCOUNTER 2022-12-15 16:35 | Emergency (ER) | payer OTHER ==
[~2022-12-15] VITALS: Ht 165.1 cm; Wt 79.5 kg
[~2022-12-15 16:35] MED LIST changes: +GLIP10TA10 PO; -GLYB-145 PO; -NIRM1TAB4 PO
[2022-12-15 16:43] VITALS: TEMP 98.4
[2022-12-15 16:55] VITALS: BP 136/82; PULSE 98; RESP 18
[2022-12-15 18:34] LABS: BASOPHILS % (AUTO) 0.9 % (0.0-2.0); EOSINOPHILS % (AUTO) 5.6 % (1.0-6.0); HEMATOCRIT 45.2 % (36-46); HEMOGLOBIN 15.2 g/dL (12.0-16.0); LYMPHOCYTES # (AUTO) 1.5 K/uL (1.0-4.8); LYMPHOCYTES % (AUTO) 12.6 % (22.0-44.0); MEAN CORPUSCULAR HEMOGLOBIN 28.2 pg (26.0-34.0); MEAN CORPUSCULAR HGB CONC 33.6 G/dL (31.0-37.0); MEAN CORPUSCULAR VOLUME 84 fL (80-100); MONOCYTES # (AUTO) 0.7 K/uL (0.1-1.0); MONOCYTES % (AUTO) 5.5 % (2.0-9.0); NEUTROPHILS % (AUTO) 75.4 % (40.0-70.0); PLATELET COUNT (AUTO) 204 K/uL (150-450); RED BLOOD CELL COUNT(AUTO) 5.37 MIL/uL (4.00-5.20); RED CELL DISTRIBUTION WIDTH 13.4 % (11.5-14.5); WHITE BLOOD COUNT (AUTO) 11.9 K/uL (4.5-11.0)
[2022-12-15 18:46] LABS: ANION GAP 8 mmol/L (8-16); CALCIUM, TOTAL 9.3 mg/dL (8.8-10.5); CARBON DIOXIDE 27 mmol/L (22-29); CHLORIDE 100 mmol/L (98-107); CREATININE 0.66 mg/dL (0.60-1.30); GLOMERULAR FILTR. RATE CALC > 60 mL/min (>60); GLUCOSE,RANDOM 291 mg/dL (70-110); POTASSIUM 4.1 mmol/L (3.5-5.1); SODIUM SERUM 135 mmol/L (136-145); UREA NITROGEN, BLOOD 18 mg/dL (7-18)
[2022-12-15 19:00] LABS: TROPONIN I-HIGH SENSITIVITY 5 ng/L (<51)
[2022-12-15 19:01] LABS: ALANINE AMINOTRANSFERASE 44 U/L (12-78); ALBUMIN 3.9 g/dL (3.4-5.0); ALKALINE PHOSPHATASE 106 U/L (46-116); ASPARTATE AMINOTRANSFERASE 19 U/L (15-37); BILIRUBIN,TOTAL 0.9 mg/dL (0.1-1.0); TOTAL PROTEIN, SERUM 7.1 g/dL (6.4-8.2)
[2022-12-15] MEDS ORDERED: IBUPROFEN 600 MG TABLET PO ONE (19:15)
[2022-12-15] MEDS ORDERED: HYDROCODONE/ACETAMINOPHEN 5-325 MG TABLET PO ONE (19:15)
[2022-12-15] MEDS ORDERED: IBUP-1554 PO (19:52)
[2022-12-15] MEDS ORDERED: ACET-66 PO (19:52)
== END 2022-12-15 20:51 | disposition home or self-care (01) ==
LOC: EMS 16:36
DX: S76.112A Strain of left quadriceps muscle, fascia and tendon, initial encounter (principal); E11.9 Type 2 diabetes mellitus without complications; Z98.890 Other specified postprocedural states; X58.XXXA Exposure to other specified factors, initial encounter; Y93.89 Activity, other specified; Y92.89 Other specified places as the place of occurrence of the external cause; Y99.8 Other external cause status
CPT/HCPCS: 29505; 80053; 82962; 84484; 85025; 85379; 87040; 93971; 99284

== ENCOUNTER → 2022-12-23 | Outpatient (CLI) | payer OTHER ==
[~2022-12-23] MED LIST changes: +ACET-66 PO; -BENZ-227 PO; +IBUP-1554 PO
== END | disposition home or self-care (01) ==
LOC: LABMN 16:05
PROVIDERS: ATTEND Hospitalist
DX: Z01.83 Encounter for blood typing (principal)
CPT/HCPCS: 86900; 86901

== ENCOUNTER → 2023-02-28 | Outpatient (CLI) | payer OTHER ==
[~2023-02-28] MED LIST changes: +SEMA0.258 SQ
== END | disposition home or self-care (01) ==
LOC: SRCNTR 14:41
PROVIDERS: ATTEND Hospitalist
DX: E11.65 Type 2 diabetes mellitus with hyperglycemia (principal); Z09 Encounter for follow-up examination after completed treatment for conditions other than malignant neoplasm; E11.9 Type 2 diabetes mellitus without complications; E66.9 Obesity, unspecified; L73.2 Hidradenitis suppurativa; I10 Essential (primary) hypertension; Z79.84 Long term (current) use of oral hypoglycemic drugs; Z79.899 Other long term (current) drug therapy
CPT/HCPCS: G0463

== ENCOUNTER → 2023-06-08 | Emergency (ER) | payer OTHER ==
[~2023-06-08] VITALS: Ht 162.6 cm; Wt 93.2 kg
[~2023-06-08] MED LIST changes: +HYDR-4723 PO; -SEMA0.258 SQ; +SEMA3TAB4 PO
[2023-06-08 12:00] VITALS: TEMP 98.3
[2023-06-08] MEDS: HYDROGEN PEROXIDE 118 ML SOLUTION TP ONE (13:05)
[2023-06-08] MEDS: IBUPROFEN 600 MG TABLET PO ONE (13:05)
[2023-06-08] MEDS: HYDROCODONE/ACETAMINOPHEN 5-325 MG TABLET PO ONE (14:04)
[2023-06-08] MEDS: BACITRACIN 0.9 GM PACKET OINTMENT TP ONE (14:42)
[2023-06-08 14:45] VITALS: BP 137/87; PULSE 89; RESP 18
== END | disposition still patient (30) ==
LOC: EMS 11:48
DX: S01.01XA Laceration without foreign body of scalp, initial encounter (principal); E11.9 Type 2 diabetes mellitus without complications; W07.XXXA Fall from chair, initial encounter; Y93.89 Activity, other specified; Y92.89 Other specified places as the place of occurrence of the external cause; Y99.8 Other external cause status
CPT/HCPCS: 12002; 70450; 72125; 99284

== ENCOUNTER → 2023-06-10 | Outpatient (CLI) | payer OTHER | END | disposition home or self-care (01) | LOC: SRCNTR 09:55 | PROVIDERS: ATTEND Hospitalist | DX: Z79.899 Other long term (current) drug therapy (principal) | CPT/HCPCS: Q3014 ==

== ENCOUNTER → 2023-11-10 | Outpatient (CLI) | payer OTHER ==
[~2023-11-10] MED LIST changes: +HYDR-4062 PO; -HYDR-4723 PO
== END | disposition home or self-care (01) ==
LOC: SRCNTR 15:03
PROVIDERS: ATTEND Hospitalist
DX: E11.40 Type 2 diabetes mellitus with diabetic neuropathy, unspecified (principal); E66.9 Obesity, unspecified; I95.9 Hypotension, unspecified; M17.0 Bilateral primary osteoarthritis of knee; Z79.84 Long term (current) use of oral hypoglycemic drugs; Z79.899 Other long term (current) drug therapy
CPT/HCPCS: G0463; Z7500

== ENCOUNTER 2024-02-14 16:18 | Inpatient (IN) | payer OTHER ==
[~2024-02-14] VITALS: Ht 160 cm; Wt 86.4 kg
[~2024-02-14 16:18] MED LIST changes: -GLIP10TA10 PO; +GLIP10TA17 PO
[2024-02-14] MEDS ORDERED: METF-446 PO (16:24)
[2024-02-14] MEDS ORDERED: GLIP5TAB15 PO (16:24)
[2024-02-14 17:14] LABS: ACETONE,BLOOD NEGATIVE (NEGATIVE)
[2024-02-14 17:17] LABS: ANION GAP 3 mmol/L (8-16); CALCIUM, TOTAL 9.5 mg/dL (8.8-10.5); CARBON DIOXIDE 33 mmol/L (22-29); CHLORIDE 99 mmol/L (98-107); CREATININE 0.79 mg/dL (0.60-1.30); GLOMERULAR FILTR. RATE CALC > 60 mL/min (>60); GLUCOSE,RANDOM 359 mg/dL (70-110); POTASSIUM 5.6 mmol/L (3.5-5.1); SODIUM SERUM 135 mmol/L (136-145); UREA NITROGEN, BLOOD 14 mg/dL (7-18)
[2024-02-14 17:18] LABS: LIPASE 55 U/L (16-77)
[2024-02-14 17:21] LABS: BASOPHILS % (AUTO) 0.3 % (0.0-2.0); EOSINOPHILS % (AUTO) 1.4 % (1.0-6.0); HEMATOCRIT 49.6 % (36-46); HEMOGLOBIN 16.9 g/dL (12.0-16.0); LYMPHOCYTES # (AUTO) 0.4 K/uL (1.0-4.8); LYMPHOCYTES % (AUTO) 2.7 % (22.0-44.0); MEAN CORPUSCULAR HEMOGLOBIN 28.1 pg (26.0-34.0); MEAN CORPUSCULAR HGB CONC 34.1 G/dL (31.0-37.0); MEAN CORPUSCULAR VOLUME 82 fL (80-100); MONOCYTES # (AUTO) 0.6 K/uL (0.1-1.0); MONOCYTES % (AUTO) 4.1 % (2.0-9.0); NEUTROPHILS # (AUTO) 13.4 K/uL (1.8-7.7); PLATELET COUNT (AUTO) 255 K/uL (150-450); RED BLOOD CELL COUNT(AUTO) 6.03 MIL/uL (4.00-5.20); RED CELL DISTRIBUTION WIDTH 13.3 % (11.5-14.5); WHITE BLOOD COUNT (AUTO) 14.6 K/uL (4.5-11.0)
[2024-02-14 17:26] LABS: TROPONIN I-HIGH SENSITIVITY 4 ng/L (<51)
[2024-02-14 17:30] LABS: NEUTROPHILS % (AUTO) 91.5 % (40.0-70.0)
[2024-02-14 18:25] LABS: APPEARANCE,URINE CLEAR (CLEAR); BILIRUBIN,URINE NEGATIVE (NEGATIVE); COLOR,URINE LIGHT YELLOW (YELLOW); GLUCOSE, URINE (UA) >=1000 mg/dL (NEGATIVE); KETONES,URINE 80-100 mg/dL (NEGATIVE); LEUKOCYTE ESTERASE ,URINE NEGATIVE (NEGATIVE); NITRATE,URINE NEGATIVE (NEGATIVE); OCCULT BLOOD,URINE NEGATIVE (NEGATIVE); PH,URINE 5.5 (5.0-8.0); PROTEIN,URINE 30-70 mg/dL (NEGATIVE); SPECIFIC GRAVITIY, URINE 1.045 (1.003-1.030); UROBILINOGEN,URINE <=1.0 mg/dL (<=1.0)
[2024-02-14] MEDS: SODIUM CHLORIDE 0.9% 1,000 ML IV ONE (18:32)
[2024-02-14] MEDS: KETOROLAC TROMETHAMINE 30 MG/ML VIAL IVP ONE (18:33)
[2024-02-14] MEDS: ONDANSETRON HCL 4 MG/2 ML VIAL IVP ONE (18:33)
[2024-02-14] MEDS: INSULIN REGULAR, HUMAN 100 UNITS/ML IVP ONE (18:35)
[2024-02-14 19:02] LABS: BACTERIA,URINE Few /HPF (None Seen); RBC,URINE None Seen /HPF (0-2); WBC,URINE 0-2 /HPF (0-5)
[2024-02-14] MEDS ORDERED: IPRATROPIUM BROMIDE 0.5 MG/2.5 ML NEB SOLUTION NEB PRN (20:15)
[2024-02-14] MEDS ORDERED: DEXTROSE 50%-WATER 25 GM/50 ML SYRINGE IVP PRN (20:15)
[2024-02-14] MEDS ORDERED: ZOLPIDEM TARTRATE 5 MG TABLET PO PRN (20:15)
[2024-02-14] MEDS ORDERED: ONDANSETRON HCL 4 MG/2 ML VIAL IVP PRN (20:15)
[2024-02-14] MEDS ORDERED: HYDROCODONE/ACETAMINOPHEN 5-325 MG TABLET PO PRN (20:15)
[2024-02-14] MEDS ORDERED: ALBUTEROL SULFATE 2.5 MG/0.5 ML NEB SOLUTION NEB PRN (20:15)
[2024-02-14] MEDS ORDERED: BISACODYL 10 MG RECTAL RECTAL SUPPOSITORY PR PRN (20:15)
[2024-02-14] MEDS ORDERED: MAGNESIUM HYDROXIDE SUSPENSION 30 ML UDCUP PO PRN (20:15)
[2024-02-14] MEDS: PIPERACILLIN SODIUM/TAZOBACTAM 2.25 GM in DEXTROSE 5%-WATER 50 ML IV ONE (20:29)
[2024-02-14 20:30] LABS: LACTIC ACID 1.6 mmol/L (0.4-2.0)
[2024-02-14] MEDS: SODIUM CHLORIDE 0.9% 2,600 ML IV ONE (20:30)
[2024-02-14] MEDS: MORPHINE SULFATE 2 MG/ML SYRINGE IVP PRN (22:17)
[2024-02-14] MEDS: HEPARIN SODIUM,PORCINE 5,000 UNITS/ML VIAL SQ SCH (23:18)
[2024-02-14] MEDS: ACETAMINOPHEN 325 MG TABLET PO PRN (23:57)
[2024-02-14] MEDS: INSULIN LISPRO 100 UNITS/ML SQ PRN (23:57)
[2024-02-15 01:16] VITALS: BP 112/66; PULSE 102; RESP 20; TEMP 100.3; O2SAT 94
[2024-02-15] MEDS ORDERED: SODIUM CHLORIDE 0.9% 500 ML IV ONE (01:37)
[2024-02-15] MEDS: PIPERACILLIN/TAZO 3.375 GM/D5W 50 ML IV SCH (01:47)
[2024-02-15] MEDS: SODIUM CHLORIDE 0.45% 1,000 ML IV SCH (04:08)
[2024-02-15 04:14] VITALS: BP 105/55; PULSE 79; RESP 18; TEMP 98.3; O2SAT 96
[2024-02-15 07:55] LABS: BASOPHILS % (AUTO) 0.5 % (0.0-2.0); EOSINOPHILS % (AUTO) 4.5 % (1.0-6.0); HEMATOCRIT 38.4 % (36-46); HEMOGLOBIN 13.3 g/dL (12.0-16.0); LYMPHOCYTES # (AUTO) 0.6 K/uL (1.0-4.8); LYMPHOCYTES % (AUTO) 13.6 % (22.0-44.0); MEAN CORPUSCULAR HEMOGLOBIN 28.4 pg (26.0-34.0); MEAN CORPUSCULAR HGB CONC 34.6 G/dL (31.0-37.0); MEAN CORPUSCULAR VOLUME 82 fL (80-100); MONOCYTES # (AUTO) 0.7 K/uL (0.1-1.0); NEUTROPHILS # (AUTO) 3.2 K/uL (1.8-7.7); NEUTROPHILS % (AUTO) 67.4 % (40.0-70.0); PLATELET COUNT (AUTO) 180 K/uL (150-450); RED BLOOD CELL COUNT(AUTO) 4.67 MIL/uL (4.00-5.20); RED CELL DISTRIBUTION WIDTH 12.9 % (11.5-14.5); WHITE BLOOD COUNT (AUTO) 4.7 K/uL (4.5-11.0)
[2024-02-15 08:00] VITALS: BP 104/59; PULSE 87; RESP 20; TEMP 98.7; O2SAT 96
[2024-02-15 08:01] LABS: ANION GAP 3 mmol/L (8-16); CALCIUM, TOTAL 7.3 mg/dL (8.8-10.5); CARBON DIOXIDE 28 mmol/L (22-29); CHLORIDE 104 mmol/L (98-107); CREATININE 0.59 mg/dL (0.60-1.30); GLOMERULAR FILTR. RATE CALC > 60 mL/min (>60); GLUCOSE,RANDOM 229 mg/dL (70-110); POTASSIUM 3.4 mmol/L (3.5-5.1); SODIUM SERUM 135 mmol/L (136-145); UREA NITROGEN, BLOOD 13 mg/dL (7-18)
[2024-02-15] MEDS: PANTOPRAZOLE SODIUM 40 MG DR TABLET PO SCH (08:38)
[2024-02-15] MEDS: GlipiZIDE 5 MG TABLET PO SCH (08:39)
[2024-02-15 11:11] LABS: GLUCOMETER DEV NAME(LOC) 4E.2; GLUCOSE,POINT OF CARE 243 MG/DL (70-110)
[2024-02-15] MEDS ORDERED: SODIUM CHLORIDE 0.9% 100 ML ONE (12:14)
[2024-02-15] MEDS ORDERED: IOHEXOL 350 MG/ML 100 ML VIAL ONE (12:14)
[2024-02-15] MEDS: POTASSIUM CHLORIDE 20 MEQ ER TABLET PO ONE (13:59)
[2024-02-15 15:54] VITALS: BP 135/68; PULSE 92; RESP 17; TEMP 98.4; O2SAT 98
[2024-02-15 20:22] VITALS: BP 135/65; PULSE 73; RESP 20; TEMP 98.6; O2SAT 96
[2024-02-16 01:06] LABS: GLUCOMETER DEV NAME(LOC) 4E.2; GLUCOSE,POINT OF CARE 171 MG/DL (70-110)
[2024-02-16 01:06] LABS: GLUCOMETER DEV NAME(LOC) 4E.2; GLUCOSE,POINT OF CARE 96 MG/DL (70-110)
[2024-02-16 02:36] LABS: GLUCOMETER DEV NAME(LOC) 6N.2B; GLUCOSE,POINT OF CARE 191 MG/DL (70-110)
[2024-02-16 05:17] VITALS: BP 133/77; PULSE 73; RESP 20; TEMP 98.4; O2SAT 96
[2024-02-16 08:07] LABS: BASOPHILS % (AUTO) 0.4 % (0.0-2.0); EOSINOPHILS % (AUTO) 6.7 % (1.0-6.0); HEMOGLOBIN 12.8 g/dL (12.0-16.0); LYMPHOCYTES # (AUTO) 1.1 K/uL (1.0-4.8); LYMPHOCYTES % (AUTO) 28.4 % (22.0-44.0); MEAN CORPUSCULAR HEMOGLOBIN 28.3 pg (26.0-34.0); MEAN CORPUSCULAR HGB CONC 34.6 G/dL (31.0-37.0); MEAN CORPUSCULAR VOLUME 82 fL (80-100); MONOCYTES # (AUTO) 0.4 K/uL (0.1-1.0); MONOCYTES % (AUTO) 11.1 % (2.0-9.0); NEUTROPHILS % (AUTO) 53.4 % (40.0-70.0); PLATELET COUNT (AUTO) 192 K/uL (150-450); RED BLOOD CELL COUNT(AUTO) 4.53 MIL/uL (4.00-5.20); RED CELL DISTRIBUTION WIDTH 12.8 % (11.5-14.5); WHITE BLOOD COUNT (AUTO) 3.8 K/uL (4.5-11.0)
[2024-02-16 08:13] LABS: ANION GAP 4 mmol/L (8-16); CARBON DIOXIDE 28 mmol/L (22-29); CHLORIDE 105 mmol/L (98-107); GLOMERULAR FILTR. RATE CALC > 60 mL/min (>60); GLUCOSE,RANDOM 195 mg/dL (70-110); POTASSIUM 3.7 mmol/L (3.5-5.1); SODIUM SERUM 137 mmol/L (136-145); UREA NITROGEN, BLOOD 5 mg/dL (7-18)
[2024-02-16 09:03] VITALS: BP 123/66; PULSE 77; RESP 18; TEMP 97.6; O2SAT 99
[2024-02-16 11:26] LABS: GLUCOMETER DEV NAME(LOC) 4E.2; GLUCOSE,POINT OF CARE 144 MG/DL (70-110)
[2024-02-16 15:57] VITALS: BP 131/74; PULSE 76; RESP 19; TEMP 98.2; O2SAT 98
[2024-02-16 17:11] LABS: GLUCOMETER DEV NAME(LOC) 6N.2B; GLUCOSE,POINT OF CARE 236 MG/DL (70-110)
[2024-02-16] MEDS ORDERED: AMOX-457 PO (17:52)
[2024-02-16] MEDS ORDERED: SEMA7TAB2 PO (17:52)
[2024-02-16 21:56] LABS: GLUCOMETER DEV NAME(LOC) 4E.2; GLUCOSE,POINT OF CARE 176 MG/DL (70-110)
== END 2024-02-16 20:21 | disposition home or self-care (01) | DRG 872 ==
LOC: EMS 16:18 → EDH 20:23 → 4E 02-15 00:30
PROVIDERS: ADMIT Hospitalist; ATTEND Hospitalist
DX: A41.9 Sepsis, unspecified organism (principal); E11.65 Type 2 diabetes mellitus with hyperglycemia; E86.0 Dehydration; E87.5 Hyperkalemia
CPT/HCPCS: 71260; 74176; 80048; 81001; 82009; 82962; 83036; 83605; 83690; 84132; 84145; 84484; 85025; 87040; 93005; 99291; G0378; J1644; J1815; J1885; J2270; J2405; J2543; J7040; J7050; J7060